=== PATIENT | female | born 1985 | race Caucasian/White ===

== ENCOUNTER 2016-11-06 14:27 | Emergency (ER) | payer SELFPAY ==
[~2016-11-06] VITALS: Ht 157.5 cm; Wt 60.0 kg
[2016-11-06 14:31] VITALS: BP 118/88; PULSE 122; RESP 24; TEMP 98.7; O2SAT 96
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
[2016-11-06] MEDS ORDERED: KETOROLAC TROMETHAMINE 60 MG/2 ML (IM) VIAL IM ONE (15:00)
[2016-11-06 15:16] VITALS: PULSE 99; O2SAT 99
[2016-11-06 15:40] LABS: BLOOD, URINE NEG (NEG); GLUCOSE,URINE NEG (NEG); KETONE, URINE NEG (NEG); MUCUS URINE FEW /lpf (OCC); NITRITE,URINE NEG (NEG); PH, URINE 5.5 (5.0-8.5); SQUAMOUS EPITHELIAL CELL URINE 2 /hpf (0-5); URINE COLOR YELLOW (YELLW/STRAW)
[2016-11-06 15:41] LABS: COMMENT (UR) CULT NOT INDICATED; CULTURE IF INDICATED CULT NOT INDICATED
[2016-11-06] MEDS ORDERED: METR-1 PO (15:53)
[2016-11-06] MEDS ORDERED: AMOX875T PO (15:53)
[2016-11-06] MEDS ORDERED: cefTRIAXone 250 MG VIAL IM ONE (16:00)
[2016-11-06] MEDS ORDERED: AZITHROMYCIN PWD FOR SUSP 1 GM PACKET PO ONE (16:00)
[2016-11-06] MEDS ORDERED: LIDOCAINE HCL 1% 50 ML VIAL IM ONE (16:00)
[2016-11-06 18:54] LABS: CHLAMYDIA PCR NOT DETECTED (NOT DETECT); NEISSERIA PCR NOT DETECTED (NOT DETECT)
== END 2016-11-06 17:04 | disposition home or self-care (01) ==
LOC: NEPC 14:27
DX: N76.0 Acute vaginitis (principal); J02.0 Streptococcal pharyngitis; B95.0 Streptococcus, group A, as the cause of diseases classified elsewhere; F17.210 Nicotine dependence, cigarettes, uncomplicated
CPT/HCPCS: 81001; 84703; 87210; 87491; 87591; 87880; 96372; 99283; J0696; J1885

== ENCOUNTER 2016-12-29 11:53 | Emergency (ER) | payer SELFPAY ==
[~2016-12-29] VITALS: Ht 157.5 cm; Wt 61.8 kg
[~2016-12-29 11:53] MED LIST: AMOX875T PO; METR-1 PO
[2016-12-29 11:58] VITALS: BP 108/74; PULSE 92; RESP 16; TEMP 98.4; O2SAT 98
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
[2016-12-29 13:20] VITALS: BP 98/69; PULSE 85; RESP 14; O2SAT 97
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
[2016-12-29] MEDS ORDERED: ZOFR4TAB3 SL (13:46)
[2016-12-29] MEDS ORDERED: BUTA1CAP PO (13:46)
== END 2016-12-29 14:00 | disposition home or self-care (01) ==
LOC: PHED 11:53
DX: S00.83XA Contusion of other part of head, initial encounter (principal); Y04.2XXA Assault by strike against or bumped into by another person, initial encounter
CPT/HCPCS: 70450; 84703; 99284

== ENCOUNTER 2017-03-25 13:28 | Emergency (ER) | payer OTHER ==
[~2017-03-25] VITALS: Ht 157.5 cm; Wt 65.0 kg
[~2017-03-25 13:28] MED LIST changes: +BUTA1CAP PO; +ZOFR4TAB3 SL
[2017-03-25 13:29] VITALS: BP 132/82; PULSE 111; RESP 14; TEMP 98.2; O2SAT 95
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
[2017-03-25] MEDS ORDERED: IBUP800T23 PO (14:14)
--- NOTE | 2017-03-25 14:43 | RADRPT ---
EXAM DATE/TIME: 03/25/2017 14:06 [facility] COMPARISON: No previous studies available for comparison. INDICATIONS : Right anterior foot pain, no known injury. MEDICAL HISTORY : None. SURGICAL HISTORY : None. ENCOUNTER: Initial ACUITY: 2 days PAIN SCORE: 9/10 LOCATION: Right foot FINDINGS: Three view examination of the right foot demonstrates no soft tissue swelling, dislocation, or fractu re. The tarsal bones appear intact. The interphalangeal and metatarsophalangeal joints are intact. The calcaneus is intact. Bony mineralization is normal. CONCLUSION: 1. No acute fracture or dislocation. Clinton Fisher MD on March 25, 2017 at 14:40 Board Certified Radiologist. This report was verified electronically.
== END 2017-03-25 14:20 | disposition home or self-care (01) ==
LOC: NEPK 13:28
DX: M65.9 Synovitis and tenosynovitis, unspecified (principal); S90.31XA Contusion of right foot, initial encounter; J45.909 Unspecified asthma, uncomplicated; F17.200 Nicotine dependence, unspecified, uncomplicated; Y93.72 Activity, wrestling
CPT/HCPCS: 73630; 99283; E0113; L3260

== ENCOUNTER 2017-05-31 15:56 | Emergency (ER) | payer OTHER ==
[~2017-05-31 15:56] MED LIST changes: +IBUP1TAB7 PO
[2017-05-31 15:58] VITALS: BP 121/84; PULSE 77; RESP 16; TEMP 98.7; O2SAT 98
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
[2017-05-31] MEDS ORDERED: MAGICADU2 SWISH-SWAL (18:09)
[2017-05-31] MEDS ORDERED: IBUP1TAB7 PO (18:09)
== END 2017-05-31 18:29 | disposition home or self-care (01) ==
LOC: NEPK 15:56
DX: J02.9 Acute pharyngitis, unspecified (principal); J30.2 Other seasonal allergic rhinitis; J45.909 Unspecified asthma, uncomplicated; F17.200 Nicotine dependence, unspecified, uncomplicated; Z79.899 Other long term (current) drug therapy; Z88.8 Allergy status to other drugs, medicaments and biological substances
CPT/HCPCS: 87081; 87880; 99283

== ENCOUNTER 2017-08-11 21:47 | Emergency (ER) | payer OTHER ==
[~2017-08-11] VITALS: Ht 157.5 cm; Wt 65.0 kg
[2017-08-11 21:58] VITALS: BP 125/68; PULSE 94; RESP 16; TEMP 98.5; O2SAT 98
[2017-08-12] MEDS ORDERED: NORC5TAB PO (01:19)
[2017-08-12] MEDS ORDERED: ANUC25SU RECTAL (01:19)
[2017-08-12] MEDS ORDERED: HYDROCORTISONE ACETATE 25 MG SUPP RECTAL ONE (01:21)
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
[2017-08-12] MEDS ORDERED: ACETAMINOPHEN/HYDROcodone 325 MG/5 MG TAB PO ONE (01:30)
== END 2017-08-12 01:57 | disposition home or self-care (01) ==
LOC: NEPD 21:47
DX: K60.2 Anal fissure, unspecified (principal); F17.200 Nicotine dependence, unspecified, uncomplicated
CPT/HCPCS: 99283